=== PATIENT | male | born 1935 | race Caucasian/White ===

== ENCOUNTER 2020-07-10 20:45 | Emergency (ER) | payer MEDICARE, BC ==
[2020-07-10 21:43] VITALS: BP 116/47; PULSE 84
--- NOTE | 2020-07-10 21:46 | EDM.PDOC ---
ED HPI GENERAL MEDICAL PROBLEM - General Chief Complaint: Respiratory Problem Stated Complaint: TROUBLE BREATHING,COUGHING Time Seen by Provider: 07/10/20 21:40 Source of Information: Reports: Patient, Family History Limitations: Reports: No Limitations - History of Present Illness INITIAL COMMENTS - FREE TEXT/NARRATIVE: ED with c/o cough, chronic, toady felt weak , sweating and low grade temp, felt like breathing heavier. No prior dx of COPD. Was seen in clinic on Friday by PCP, Contacted to day t set for CT but not sure of what. Cough x 1.5 years. Loss of taste and smell of greater than one year. Currently no symptoms. - Related Data Allergies Allergy/AdvReac Type Severity Reaction Status Date / Time No Known Allergies Allergy Verified 07/28/14 10:04 Home Meds: Home Meds Rosuvastatin Calcium [Crestor] 2.5 mg PO DAILY 07/28/14 [History] metFORMIN [Glucophage] 1,000 mg PO BIDMEALS 07/28/14 [History] Aspirin [Halfprin] 81 mg PO DAILY 07/10/20 [History] Chlorthalidone 12.5 mg PO DAILY 07/10/20 [History] Mecobalamin [B12 Active] 1,000 mcg PO DAILY 07/10/20 [History] metFORMIN [Glucophage XR] 500 mg PO WITHDINNER 07/10/20 [History] Past Medical History Other HEENT History: wears glasses Other Gastrointestinal History: Apr 2014 found to have gall stones Social & Family History - Family History Family Medical History: No Pertinent Family History - Tobacco Use Tobacco Use Status *Q: Never Tobacco User - Caffeine Use Caffeine Use: Reports: None - Recreational Drug Use Recreational Drug Use: No ED ROS GENERAL - Review of Systems Review Of Systems: Comprehensive ROS is negative, except as noted in HPI. ED EXAM, GENERAL - Physical Exam Exam: See Below Exam Limited By: No Limitations General Appearance: Alert, No Apparent Distress Eye Exam: Bilateral Eye: EOMI Ears: Normal External Exam, Hearing Loss Nose: Normal Inspection Throat/Mouth: Normal Inspection Head: Atraumatic, Normocephalic Neck: Normal Inspection Respiratory/Chest: No Respiratory Distress, Decreased Breath Sounds (right posterior ), Rhonchi (right anterior upper) Cardiovascular: Normal Peripheral Pulses, Regular Rate, Rhythm GI/Abdominal: Normal Bowel Sounds Back Exam: Normal Inspection Extremities: Normal Inspection, Pedal Edema (1+left) Neurological: Alert, Oriented Psychiatric: Normal Affect Skin Exam: Warm, Dry, Intact, Normal Color #1 Interpretation EKG Date: 07/10/20 Time: 21:24 Rhythm: NSR Rate (Beats/Min): 83 [place]: Normal P-Wave: Present QRS: Normal ST-T: Normal QT: Normal Comparison: NA - No Prior EKG Course - Vital Signs Last Recorded V/S: Last Vital Signs Temp 98.4 F 07/10/20 21:35 Pulse 84 07/10/20 21:35 Resp 36 H 07/10/20 21:35 BP 116/47 L 07/10/20 21:35 Pulse Ox 96 07/10/20 21:35 - Orders/Labs/Meds Labs: Laboratory Tests 07/10/20 07/10/20 07/10/20 Range/Units 21:03 21:37 21:37 WBC 12.7 H (5.0-10.0) 10^3/uL RBC 3.55 L (4.6-6.2) 10^6/uL Hgb 11.5 L D (14.0-18.0) g/dL Hct 34.2 L (40.0-54.0) % MCV 96.3 (80-100) fL MCH 32.4 (27.0-34.0) pg MCHC 33.6 (33.0-35.0) g/dL Plt Count 210 (150-450) 10^3/uL Neut % (Auto) 84.5 H (42.2-75.2) % Lymph % (Auto) 6.9 L (20.5-50.1) % Campbell % (Auto) 8.2 H (2-8) % Eos % (Auto) 0.2 L (1.0-3.0) % Baso % (Auto) 0.2 (0.0-1.0) % PT (9.0-12.0) SEC INR (0.9-1.2) D-Dimer, Quantitative (0-400) ng/mL Sodium 135 L (136-145) mmol/L Potassium 4.0 (3.5-5.1) mmol/L Chloride 100 (98-107) mmol/L Carbon Dioxide 22 (21-32) mmol/L Anion Gap 17.0 H (7-13) mEq/L BUN 23 H (7-18) mg/dL Creatinine 1.64 H (0.70-1.30) mg/dL Est Cr Clr Drug Dosing 35.71 mL/min Estimated GFR (MDRD) 40 BUN/Creatinine Ratio 14.0 (No establ ref range) Glucose 213 H (70-99) mg/dL Calcium 8.3 L (8.5-10.1) mg/dL Magnesium 1.4 L (1.8-2.4) mg/dL Total Bilirubin 1.1 H (0.2-1.0) mg/dL AST 89 H (15-37) U/L ALT 227 H (16-63) U/L Alkaline Phosphatase 90 (46-116) U/L Troponin I < 0.017 (0.000-0.056) ng/mL Total Protein 6.2 L (6.4-8.2) g/dL Albumin 2.7 L (3.4-5.0) g/dL Globulin 3.5 Albumin/Globulin Ratio 0.77 Influenza Type A RNA Negative (NEGATIVE) Influenza Type B RNA Negative (NEGATIVE) SARS-CoV-2 RNA (MARCUS) Negative (NEGATIVE) 07/10/20 Range/Units 21:37 WBC (5.0-10.0) 10^3/uL RBC (4.6-6.2) 10^6/uL Hgb (14.0-18.0) g/dL Hct (40.0-54.0) % MCV (80-100) fL MCH (27.0-34.0) pg MCHC (33.0-35.0) g/dL Plt Count (150-450) 10^3/uL Neut % (Auto) (42.2-75.2) % Lymph % (Auto) (20.5-50.1) % Campbell % (Auto) (2-8) % Eos % (Auto) (1.0-3.0) % Baso % (Auto) (0.0-1.0) % PT 9.8 (9.0-12.0) SEC INR 1.0 (0.9-1.2) D-Dimer, Quantitative 646 H (0-400) ng/mL Sodium (136-145) mmol/L Potassium (3.5-5.1) mmol/L Chloride (98-107) mmol/L Carbon Dioxide (21-32) mmol/L Anion Gap (7-13) mEq/L BUN (7-18) mg/dL Creatinine (0.70-1.30) mg/dL Est Cr Clr Drug Dosing mL/min Estimated GFR (MDRD) BUN/Creatinine Ratio (No establ ref range) Glucose (70-99) mg/dL Calcium (8.5-10.1) mg/dL Magnesium (1.8-2.4) mg/dL Total Bilirubin (0.2-1.0) mg/dL AST (15-37) U/L ALT (16-63) U/L Alkaline Phosphatase (46-116) U/L Troponin I (0.000-0.056) ng/mL Total Protein (6.4-8.2) g/dL Albumin (3.4-5.0) g/dL Globulin Albumin/Globulin Ratio Influenza Type A RNA (NEGATIVE) Influenza Type B RNA (NEGATIVE) SARS-CoV-2 RNA (MARCUS) (NEGATIVE) Meds: Medications Discontinued Medications Generic Name Dose Route Start Last Admin Trade Name Freq PRN Reason Stop Dose Admin Levofloxacin 500 mg 07/10/20 22:15 07/10/20 22:29 Levofloxacin 500 Mg Tab PO 07/10/20 22:16 500 mg ONETIME ONE Administration Departure - Departure Time of Disposition: 22:19 Disposition: Home, Self-Care 01 Condition: Good Clinical Impression: RLL pneumonia Qualifiers: Pneumonia type: due to unspecified organism Qualified Code(s): J18.9 - Pneumonia, unspecified organism - Discharge Information *PRESCRIPTION DRUG MONITORING PROGRAM REVIEWED*: No *COPY OF PRESCRIPTION DRUG MONITORING REPORT IN PATIENT ROMINA: No Instructions: Community-Acquired Pneumonia, Adult, [id number] Referrals: PCP,None [Primary Care Provider] - Forms: ED Department Discharge Additional Instructions: clinic recheck Friday or , sooner if symptoms worsen diet as tolerated Urgent follow up difficulty breathing , or chest pain tylenol every 4 hours as needed humidification levaquin 250mg daily Sepsis Event Note (ED) - Evaluation Sepsis Screening Result: No Definite Risk - Focused Exam Vital Signs: Vital Signs Temp Pulse Resp BP Pulse Ox 07/10/20 21:35 98.4 F 84 36 H 116/47 L 96
--- NOTE | 2020-07-10 21:49 | CR ---
PROCEDURE INFORMATION: Exam: XR Chest Exam date and time: 07/10/2020 9:25 PM Age: 85 years old Clinical indication: Cough and shortness of breath; Additional info: Cough SOB TECHNIQUE: Imaging protocol: XR of the chest. Views: 1 view. COMPARISON: No relevant prior studies available. FINDINGS: Lungs: Right lower lung patchy consolidation consistent with pneumonia. Pleural spaces: Unremarkable. No pleural effusion. No pneumothorax. Heart/Mediastinum: Unremarkable. No cardiomegaly. Bones/joints: Unremarkable. IMPRESSION: Right lower lung pneumonia.
[2020-07-10 22:04] LABS: CORONAVIRUS COVID-19 NAA NEGATIVE (NEGATIVE)
[2020-07-10 22:04] LABS: CHLORIDE,CL 100 mmol/L (98-107); SODIUM,NA 135 mmol/L (136-145)
[2020-07-10] MEDS ORDERED: Levofloxacin 500 MG Tab PO ONE (22:15)
== END 2020-07-10 22:41 | disposition home or self-care (01) ==
LOC: DL.ED 20:45
DX: J18.9 Pneumonia, unspecified organism (principal); Z20.822 Contact with and (suspected) exposure to COVID-19; Z79.899 Other long term (current) drug therapy
CPT/HCPCS: 0240U; 36415; 71045; 80053; 83735; 84484; 85025; 85379; 85610; 93005; 99283; 99285-25; A9270-GY

== ENCOUNTER 2022-11-01 05:23 | Day surgery (SDC) | payer MEDICARE, BC ==
[2022-11-01] MEDS ORDERED: Midazolam 1 MG/ML 2 ML SDV IV ONE ×2 (05:24→06:32)
[2022-11-01] MEDS ORDERED: fentaNYL 100 MCG/2 ML SDV IV ONE ×3 (05:24→06:31)
[2022-11-01] MEDS ORDERED: Dextrose 5%-0.45% NaCl 1,000 ML IV SCH (05:30)
[2022-11-01] MEDS ORDERED: Midazolam 1 MG/ML 2 ML SDV ONE (06:07)
[2022-11-01] MEDS ORDERED: fentaNYL 100 MCG/2 ML SDV ONE (06:07)
[2022-11-01 07:00] VITALS: BP 182/69; PULSE 71
== END 2022-11-01 08:15 | disposition home or self-care (01) ==
LOC: DL.ENDO 05:23
PROVIDERS: ATTEND Internal Medicine Gastroenterology
DX: R05.3 Chronic cough (principal); A04.8 Other specified bacterial intestinal infections; I10 Essential (primary) hypertension; E11.9 Type 2 diabetes mellitus without complications; E78.00 Pure hypercholesterolemia, unspecified; H91.90 Unspecified hearing loss, unspecified ear; M19.90 Unspecified osteoarthritis, unspecified site; F41.1 Generalized anxiety disorder; Z79.84 Long term (current) use of oral hypoglycemic drugs; Z79.899 Other long term (current) drug therapy
CPT/HCPCS: 43239; 87077; J2250; J3010; J7042

== ENCOUNTER 2023-11-09 19:26 | Emergency (ER) | payer MEDICARE, BC ==
[2023-11-09] MEDS ORDERED: Iopamidol 612 MG/ML 100 ML Bottle IVPUSH ONE (20:08)
[2023-11-09] MEDS: Sodium Chloride 0.9% 10 ML Syringe FLUSH PRN (20:18)
[2023-11-09] MEDS: Iopamidol 755 Mg/ML 100 ML Bottle IV ONE (20:20)
[2023-11-09 21:01] LABS: BASOPHILS PERCENT AUTO 0.4 % (0.0-1.0); EOSINOPHILS PERCENT AUTO 1.5 % (1.0-3.0); HEMATOCRIT 35.1 % (40.0-54.0); HEMOGLOBIN 11.7 g/dL (14.0-18.0); MEAN CORPUSCULAR HEMOGLOBIN 32.8 pg (27.0-34.0); MEAN CORPUSCULAR HGB CONC 33.3 g/dL (33.0-35.0); MEAN CORPUSCULAR VOLUME 98.3 fL (80-100); MONOCYTES PERCENT AUTO 10.2 % (2-8); NEUTROPHILS PERCENT AUTO 56.9 % (42.2-75.2); PLATELET COUNT,PLT 206 10^3/uL (150-450); RED BLOOD CELL COUNT 3.57 10^6/uL (4.6-6.2); WHITE BLOOD CELL COUNT,WBC 7.4 10^3/uL (5.0-10.0)
[2023-11-09 21:17] LABS: PROTHROMBIN TIME 10.1 SEC (9.0-12.0); PTT,PARTIAL THROMBOPLSTIN TIME 25.9 SEC (22.0-34.0)
[2023-11-09 21:39] LABS: LACTIC ACID 3.5 mmol/L (0.4-2.0)
[2023-11-09 21:45] LABS: ALANINE AMINOTRANSFERASE,ALT 24 U/L (16-63); ALBUMIN 3.5 g/dL (3.4-5.0); ALKALINE PHOSPHATASE 50 U/L (46-116); ANION GAP 18.6 mEq/L (7-13); ASPARTATE AMNIOTRANSFERASE,AST 11 U/L (15-37); BILIRUBIN TOTAL 0.6 mg/dL (0.2-1.0); BLOOD UREA NITROGEN,BUN 46 mg/dL (7-18); BUN/CREATININE RATIO 20.4 (No establ ref range); CARBON DIOXIDE,CO2 22 mmol/L (21-32); CHLORIDE,CL 102 mmol/L (98-107); CREATINE KINASE,CK 89 U/L (39-308); CREATININE 2.25 mg/dL (0.70-1.30); EST CRCL DRUG DOSING (CG) 26.68 mL/min; GLUCOSE RANDOM 151 mg/dL (70-99); MAGNESIUM 1.7 mg/dL (1.8-2.4); POTASSIUM,K 4.6 mmol/L (3.5-5.1); PROTEIN TOTAL,TP 6.9 g/dL (6.4-8.2); SODIUM,NA 138 mmol/L (136-145)
[2023-11-09 21:46] LABS: ESTIMATED GFR 28 mL/min (>=60); ETHANOL BLOOD MEDICAL < 3 mg/dL (0)
[2023-11-09] MEDS: Sodium Chloride 0.9% 500 ML IV ONE ×2 (21:53→22:30)
[2023-11-09 22:00] LABS: APPEARANCE,URINE CLEAR (CLEAR); BILIRUBIN,URINE NEGATIVE (NEGATIVE); COLOR,URINE YELLOW (YELLOW); GLUCOSE,URINE NEGATIVE (NEGATIVE); KETONES,URINE NEGATIVE (NEGATIVE); LEUKOCYTE ESTERASE,URINE SMALL (NEGATIVE); NITRITE,URINE NEGATIVE (NEGATIVE); OCCULT BLOOD,URINE NEGATIVE (NEGATIVE); PH,URINE 5.5 (5.0-9.0); PROTEIN,URINE NEGATIVE (NEGATIVE); UROBILINOGEN,URINE 0.2 mg/dL (0.2-1.0)
[2023-11-09 22:28] LABS: BACTERIA,URINE MODERATE /HPF (0-FEW/HPF); EPITHELIAL CELLS,URINE FEW /HPF (NOT SEEN); HYALINE CASTS,URINE FEW; MUCUS,URINE FEW /LPF (NOT SEEN); WBC,URINE 50-75 /HPF (0-5/HPF)
[2023-11-09] MEDS: Sodium Chloride 0.9% 1,000 ML IV SCH (23:09)
[2023-11-09 23:30] LABS: LACTIC ACID 3.8 mmol/L (0.4-2.0)
[2023-11-09] MEDS: cefTRIAXone 2 GM in Sodium Chloride 0.9% 100 ML IV ONE (23:52)
[2023-11-09] MEDS: Aspirin 81 MG Tab.Chew PO ONE (23:54)
[2023-11-10 00:33] VITALS: BP 130/78; PULSE 71
[2023-11-10] MEDS: Aspirin 81 MG Tab.Chew ONE (00:35)
== END 2023-11-10 00:07 ==
LOC: DL.ED 19:26
DX: I63.9 Cerebral infarction, unspecified (principal); N39.0 Urinary tract infection, site not specified; K81.9 Cholecystitis, unspecified; R74.02 Elevation of levels of lactic acid dehydrogenase [LDH]; E11.9 Type 2 diabetes mellitus without complications; Z86.16 Personal history of COVID-19; Z79.84 Long term (current) use of oral hypoglycemic drugs; Z79.899 Other long term (current) drug therapy
CPT/HCPCS: 36415; 70450; 70496; 70498; 71250; 74176; 80053; 80307; 81001; 82550; 82947; 83605; 83735; 84145; 84443; 84484; 85025; 85610; 85730; 87086; 87088; 93005; 93010; 96361; 96365; 96375; 99285; 99285-25; A9270-GY; J0696; J3475; J3490; J7030; Q9967

== ENCOUNTER 2023-11-15 14:46 | Emergency (ER) | payer MEDICARE, BC ==
[2023-11-15 15:13] VITALS: BP 103/59; PULSE 72
[2023-11-15 15:37] LABS: BASOPHILS PERCENT AUTO 0.3 % (0.0-1.0); EOSINOPHILS PERCENT AUTO 1.7 % (1.0-3.0); HEMOGLOBIN 11.1 g/dL (14.0-18.0); MEAN CORPUSCULAR HEMOGLOBIN 33.2 pg (27.0-34.0); MEAN CORPUSCULAR HGB CONC 33.6 g/dL (33.0-35.0); MEAN CORPUSCULAR VOLUME 98.8 fL (80-100); MONOCYTES PERCENT AUTO 11.9 % (2-8); NEUTROPHILS PERCENT AUTO 63.1 % (42.2-75.2); PLATELET COUNT,PLT 183 10^3/uL (150-450); RED BLOOD CELL COUNT 3.34 10^6/uL (4.6-6.2); WHITE BLOOD CELL COUNT,WBC 7.5 10^3/uL (5.0-10.0)
[2023-11-15] MEDS: Sodium Chloride 0.9% 1,000 ML IV ONE ×2 (15:41→17:04)
[2023-11-15 15:53] LABS: B-TYPE NATRIURETIC PEPTIDE,BNP 75 pg/ml (0-100)
[2023-11-15 16:00] LABS: ALANINE AMINOTRANSFERASE,ALT 47 U/L (16-63); ALBUMIN 3.3 g/dL (3.4-5.0); ALKALINE PHOSPHATASE 55 U/L (46-116); ANION GAP 14.5 mEq/L (7-13); ASPARTATE AMNIOTRANSFERASE,AST 32 U/L (15-37); BLOOD UREA NITROGEN,BUN 25 mg/dL (7-18); BUN/CREATININE RATIO 12.4 (No establ ref range); CALCIUM 8.9 mg/dL (8.5-10.1); CARBON DIOXIDE,CO2 25 mmol/L (21-32); CHLORIDE,CL 103 mmol/L (98-107); CREATININE 2.01 mg/dL (0.70-1.30); GLUCOSE RANDOM 148 mg/dL (70-99); MAGNESIUM 1.7 mg/dL (1.8-2.4); POTASSIUM,K 4.5 mmol/L (3.5-5.1); PROTEIN TOTAL,TP 6.7 g/dL (6.4-8.2); SODIUM,NA 138 mmol/L (136-145)
[2023-11-15 16:01] LABS: A/G RATIO 0.97; ESTIMATED GFR 32 mL/min (>=60); LACTIC ACID 2.7 mmol/L (0.4-2.0)
[2023-11-15 18:01] LABS: APPEARANCE,URINE CLEAR (CLEAR); BILIRUBIN,URINE NEGATIVE (NEGATIVE); COLOR,URINE YELLOW (YELLOW); GLUCOSE,URINE NEGATIVE (NEGATIVE); KETONES,URINE NEGATIVE (NEGATIVE); LEUKOCYTE ESTERASE,URINE NEGATIVE (NEGATIVE); NITRITE,URINE NEGATIVE (NEGATIVE); OCCULT BLOOD,URINE NEGATIVE (NEGATIVE); PH,URINE 5.5 (5.0-9.0); PROTEIN,URINE NEGATIVE (NEGATIVE); UROBILINOGEN,URINE 0.2 mg/dL (0.2-1.0)
== END 2023-11-15 18:27 | disposition home or self-care (01) ==
LOC: DL.ED 14:46
DX: E86.0 Dehydration (principal); R42 Dizziness and giddiness; E11.9 Type 2 diabetes mellitus without complications; Z86.16 Personal history of COVID-19; Z79.84 Long term (current) use of oral hypoglycemic drugs; Z79.82 Long term (current) use of aspirin; Z79.899 Other long term (current) drug therapy
CPT/HCPCS: 36415; 71045; 80053; 81003; 82947; 83605; 83735; 83880; 84484; 85025; 87040; 93005; 93010; 96360; 96361; 99284; 99285-25; J7030

== ENCOUNTER 2023-12-11 12:38 | Emergency (ER) | payer MEDICARE, BC ==
[2023-12-11 13:04] VITALS: BP 100/56; PULSE 77
[2023-12-11 13:32] LABS: BASOPHILS PERCENT AUTO 0.2 % (0.0-1.0); EOSINOPHILS PERCENT AUTO 0.5 % (1.0-3.0); HEMATOCRIT 33.7 % (40.0-54.0); LYMPHOCYTES PERCENT AUTO 14.8 % (20.5-50.1); MEAN CORPUSCULAR HEMOGLOBIN 32.6 pg (27.0-34.0); MEAN CORPUSCULAR HGB CONC 32.6 g/dL (33.0-35.0); MONOCYTES PERCENT AUTO 10.3 % (2-8); NEUTROPHILS PERCENT AUTO 74.2 % (42.2-75.2); PLATELET COUNT,PLT 167 10^3/uL (150-450); RED BLOOD CELL COUNT 3.37 10^6/uL (4.6-6.2); WHITE BLOOD CELL COUNT,WBC 13.1 10^3/uL (5.0-10.0)
[2023-12-11 13:55] LABS: A/G RATIO 1.1; ALANINE AMINOTRANSFERASE,ALT 26 U/L (16-63); ALBUMIN 3.4 g/dL (3.4-5.0); ALKALINE PHOSPHATASE 51 U/L (46-116); ANION GAP 12.4 mEq/L (7-13); ASPARTATE AMNIOTRANSFERASE,AST 13 U/L (15-37); BILIRUBIN TOTAL 1.3 mg/dL (0.2-1.0); BLOOD UREA NITROGEN,BUN 29 mg/dL (7-18); BUN/CREATININE RATIO 15.3 (No establ ref range); CALCIUM 9.2 mg/dL (8.5-10.1); CARBON DIOXIDE,CO2 29 mmol/L (21-32); CHLORIDE,CL 106 mmol/L (98-107); CREATININE 1.89 mg/dL (0.70-1.30); EST CRCL DRUG DOSING (CG) 29.33 mL/min; GLUCOSE RANDOM 134 mg/dL (70-99); LIPASE 27 U/L (16-77); MAGNESIUM 1.4 mg/dL (1.8-2.4); POTASSIUM,K 4.4 mmol/L (3.5-5.1); PROTEIN TOTAL,TP 6.6 g/dL (6.4-8.2); SODIUM,NA 143 mmol/L (136-145)
[2023-12-11 13:56] LABS: ESTIMATED GFR 34 mL/min (>=60); ETHANOL BLOOD MEDICAL < 3 mg/dL (0)
[2023-12-11 13:58] LABS: LACTIC ACID 2.7 mmol/L (0.4-2.0)
[2023-12-11] MEDS: Sodium Chloride 0.9% 1,000 ML IV ONE (14:24)
[2023-12-11 15:03] LABS: AMPHETAMINES,URINE NEGATIVE (NEGATIVE); APPEARANCE,URINE CLEAR (CLEAR); BARBITURATES,URINE NEGATIVE (NEGATIVE); BENZODIAZEPINE,URINE NEGATIVE (NEGATIVE); BILIRUBIN,URINE NEGATIVE (NEGATIVE); COLOR,URINE YELLOW (YELLOW); GLUCOSE,URINE NEGATIVE (NEGATIVE); KETONES,URINE NEGATIVE (NEGATIVE); LEUKOCYTE ESTERASE,URINE NEGATIVE (NEGATIVE); MDMA (ECSTASY), URINE NEGATIVE (NEGATIVE); METHADONE,URINE NEGATIVE (NEGATIVE); METHAMPHETAMINES,URINE NEGATIVE (NEGATIVE); NITRITE,URINE NEGATIVE (NEGATIVE); OCCULT BLOOD,URINE NEGATIVE (NEGATIVE); OPIATES,URINE NEGATIVE (NEGATIVE); OXYCODONE,URINE NEGATIVE (NEGATIVE); PHENCYCLIDINE,URINE NEGATIVE (NEGATIVE); PROTEIN,URINE NEGATIVE (NEGATIVE); TCA,URINE NEGATIVE (NEGATIVE); UROBILINOGEN,URINE 0.2 mg/dL (0.2-1.0)
[2023-12-11] MEDS: Magnesium Sulfate/Water Premix 2 GM in Premix Bag 1 BAG IV ONE (15:50)
== END 2023-12-11 16:26 | disposition home or self-care (01) ==
LOC: DL.ED 12:38
DX: S39.012A Strain of muscle, fascia and tendon of lower back, initial encounter (principal); E83.42 Hypomagnesemia; E86.0 Dehydration; E11.9 Type 2 diabetes mellitus without complications; Z86.16 Personal history of COVID-19; Z79.82 Long term (current) use of aspirin; Z79.84 Long term (current) use of oral hypoglycemic drugs; Z79.899 Other long term (current) drug therapy
CPT/HCPCS: 36415; 70450; 71045; 80053; 80305; 80307; 81003; 82947; 83605; 83690; 83735; 84484; 85025; 93005; 96365; 99285; J3475; J7030